=== PATIENT | male | born 1945 | race Caucasian/White ===

== ENCOUNTER → 2018-05-13 | Outpatient (CLI) | payer OTHER, MEDICARE | LOC: CIMAGING 07:55 | PROVIDERS: ATTEND Internal Medicine | DX: R91.8 Other nonspecific abnormal finding of lung field (principal); R91.1 Solitary pulmonary nodule; J98.11 Atelectasis; J43.9 Emphysema, unspecified; I77.811 Abdominal aortic ectasia; Z87.891 Personal history of nicotine dependence | CPT/HCPCS: 36415-PO; 71250-PO; G0103 ==

== ENCOUNTER 2018-12-30 15:52 | Emergency (ER) | payer OTHER, MEDICARE ==
[2018-12-30 16:06] VITALS: BP 159/107
--- NOTE | 2018-12-30 16:34 | EDPHY ---
H & P Stated Complaint: Red bump(lesion) since yesterday,warm and swollen Time Seen by Provider: 12/30/18 15:57 HPI/ROS: 73-year-old male presents complaining of a red bump on his right joseph states he noticed a very small pimple like bump yesterday and then this morning noticed a larger area of redness. No fevers or chills No history of diabetes Review of systems As per HPI General no fever no chills no weakness HEENT no eye pain no eye discharge. No eye redness, no sore throat Respiratory no cough, no shortness of breath Cardiac no chest pain, no peripheral edema GI no abdominal pain, no diarrhea, no constipation, no nausea, no vomiting no flank pain, no hematuria, no dysuria Musculoskeletal no myalgias, no joint pain Heme no easy bruising, no easy bleeding Endo no polyuria, no polydipsia Skin positive rashes, no pruritus Neuro no syncope, no dizziness, no headaches Psych is no suicidal ideation, no homicidal ideation Source: Patient, Family Exam Limitations: No limitations - Personal History Current Tetanus Diphtheria and Acellular Pertussis (TDAP): Unsure - Medical/Surgical History Hx Asthma: No Hx Chronic Respiratory Disease: Yes Hx Diabetes: No Hx Cardiac Disease: Yes Hx Renal Disease: No Hx Cirrhosis: No Hx Alcoholism: No Hx HIV/AIDS: No Hx Splenectomy or Spleen Trauma: No Other PMH: Med-HTN/hyperlipidemia,emphesema. Surg-hernia,ortho and appy - Family History Significant Family History: No pertinent family hx - Social History Smoking Status: Never smoked Alcohol Use: None Drug Use: None - Physical Exam Exam: 73-year-old male alert and oriented no acute distress nontoxic appearance, afebrile Alert and oriented in no acute distress nontoxic appearance, afebrile Atraumatic normocephalic Neck no JVD Lungs clear to auscultation, no respiratory distress Heart regular rate and rhythm Extremities no cyanosis clubbing edema Right lower extremity right anterior lower leg 1 cm erythematous papule, non fluctuant overlying joseph about 1[address] tibia With circumferential localized erythema to the erythematous papule with mild increased warmth No lymphangitic streaks Distal pulses intact Constitutional: Initial Vital Signs Temperature (C) 36.3 C 12/30/18 16:00 Heart Rate 104 H 12/30/18 16:00 Respiratory Rate 16 12/30/18 16:00 Blood Pressure 159/107 H 12/30/18 16:00 O2 Sat (%) 94 12/30/18 16:00 O2 Delivery Mode Room Air Allergies/Adverse Reactions: No Known Allergies Allergy (Verified 12/30/18 15:59) Home Medications: Medication Instructions Recorded LISINOPRIL 40 mg PO DAILY 07/03/10 Clindamycin HCl [Clindamycin] 300 mg PO TID #30 cap 12/30/18 Lipitor 12/30/18 Metoprolol Tartrate [Lopressor 25 12/30/18 mg (*)] Medical Decision Making ED Course/Re-evaluation: Patient seen and evaluated for rash on right lower extremity Impression Erythematous papule consistent with pimple and/or insect bite with localized cellulitis Plan Clindamycin 300 mg three times daily times 10 days Follow-up with primary care Return if worsening Differential Diagnosis: Differential diagnosis considered but not limited to: Cellulitis, folliculitis, Boil, insect bite Departure - Departure Disposition: Home, Routine, Self-Care Clinical Impression: Cellulitis of right leg Condition: Good Instructions: Clindamycin (By mouth), Cellulitis (ED) Additional Instructions: Return if worsening redness spreading up your leg, or for high fever. Follow up with your primary care in 2-3 days for a recheck. Referrals: Jazmine Alcocer MD [Primary Care Provider] - As per Instructions Prescriptions: Clindamycin HCl [Clindamycin] 300 mg PO TID #30 cap
== END 2018-12-30 16:40 | disposition home or self-care (01) ==
LOC: CED 15:52
DX: L03.115 Cellulitis of right lower limb (principal)
CPT/HCPCS: 99283-ER